=== PATIENT | female | born 1990 | race Caucasian/White ===

== ENCOUNTER 2017-03-28 23:59 | Emergency (ER) | payer OTHER ==
[~2017-03-28 23:59] MED LIST: ADVAIR 2501 DISK W/D; ALBUTEROL17 GM; ALBUTEROL17 GM INH; HYDROCODON-ACE1 EACH PO; NO MEDICATIONS; ORUDIS75 M1 PO; PHENERGAN12.5 MG/SU RC; SINGULAIR; TYLENOL #3 PO; VICODIN 5/500 T1 TAB PO; VICODIN PO; VISTARIL PO; VOLTAREN50 MG PO; ZOFRAN ODT4 MG PO
== END 2017-03-29 00:45 | disposition home or self-care (01) ==
LOC: CED 23:59
DX: F11.10 Opioid abuse, uncomplicated (principal); J02.9 Acute pharyngitis, unspecified; F41.9 Anxiety disorder, unspecified; F17.210 Nicotine dependence, cigarettes, uncomplicated
CPT/HCPCS: 87651; 99283

== ENCOUNTER 2017-05-22 00:45 | Emergency (ER) | payer OTHER ==
--- NOTE | ~2017-05-22 | CR281 ---
[facility] A Service of [facility] RADIOLOGY TEXT RESULTS PATIENT: NAI PATE LOCATION: [facility] : 88 UNIT #: [id number] AGE: [address]: Lui Burden MD SEX: F ORDER DR: [id number] [facility] [address] [facility]. [place], [place] [address] [id number] E MR#: [id number] Acc #: [id number] NAME: NAI PATE. : 1990 SEX: F STUDY DATE/TIME: 05/22/2017 2:09 UNIT: [facility] ROOM: STUDY DESCRIPTION: CR Wrist Min 3 View Lt Attending Physician: Lui Burden M.D. Ordering Physician: Lui Burden M.D. Primary Care Physician: Dang Giles M.D. MEDICAL IMAGING REPORT This report is preliminary unless electronic signature is present EXAM Left wrist series INDICATION Left wrist pain and swelling for the past 2-4 days. PROCEDURE 3 views of the left wrist COMPARISON None. FINDINGS No acute fracture or dislocation. IMPRESSION No acute findings. Dictated by... Ervin Ward M.D. THIS IS AN ELECTRONICALLY VERIFIED REPORT Ervin Ward M.D. at 05/22/2017 10:27 PM JOSE/jess TD: 05/22/2017 03:06 JOB #: [id number] MEDICAL IMAGING REPORT Page 1 of 1 COPY
[2017-05-22 03:32] LABS: BASOPHIL# 0.1 X10e3 (0-0.3); BASOPHIL% 0.6 % (0-2.5); EOSINOPHIL# 0.1 X10e3 (0-0.7); EOSINOPHIL% 0.7 % (0.0-7.0); HEMOGLOBIN 12.1 gm/dL (12.0-16.0); LYMPHOCYTE# 5.6 X10e3 (1.0-3.5); LYMPHOCYTE% 44.3 % (17.0-45.0); MEAN CELL VOLUME 88.8 FL (83-96); MEAN CORPUSCULAR HEMOGLOBIN 28.9 PG (28-34); MEAN CORPUSCULAR HGB CONC 32.6 g/dL (30-36); MEAN PLATELET VOLUME 7.2 FL (6.5-11.5); MONOCYTE# 0.8 X10e3 (0-1.0); MONOCYTE% 6.4 % (3.0-12.0); NEUTROPHIL# 6.1 X10e3 (1.5-7.1); PLATELET COUNT 273 X10e3 (140-420); RED BLOOD COUNT 4.17 X10e (3.90-5.30); RED CELL DISTRIBUTION WIDTH 12.8 % (11.0-15.5); WHITE BLOOD COUNT 12.7 X10e3 (4.0-10.5)
[2017-05-22 03:33] LABS: DIFF IND NO
[2017-05-22 03:56] LABS: CALCIUM SERUM 8.6 mg/dL (8.4-10.2); CREATININE SERUM 0.5 mg/dL (0.6-1.4); GLOM FILT RATE Estimated 132.7 mL/min (>60); POTASSIUM 3.5 mmol/L (3.5-5.1)
== END 2017-05-22 05:25 | disposition home or self-care (01) ==
LOC: CED 00:45
PROVIDERS: Emergency Medicine
DX: M13.832 Other specified arthritis, left wrist (principal); M10.9 Gout, unspecified; F17.200 Nicotine dependence, unspecified, uncomplicated
CPT/HCPCS: 36415; 73110; 80048; 85025; 85652; 99284